=== PATIENT | female | born 1975 | race Caucasian/White ===

== ENCOUNTER → 2016-12-22 | Outpatient (CLI) | payer OTHER ==
[~2016-12-22] MED LIST: BCP TD; BENTYL 20MG20 MG/TAB PO; CALCIUM 600/VIT1 CA1 PO; COUMADIN; IBUPROFEN600 MG PO; LOVENOX100 MG/ML SC; MULTI VITAMINS1 TAB PO; OMEGA-3 FISH1000 MG PO; SYNTHROID 0.0.025 MG PO; ULTRAM ER100 MG PO; ZOFRAN ODT4 MG PO
== END ==
LOC: COL.RAD 13:30
DX: S43.432A Superior glenoid labrum lesion of left shoulder, initial encounter (principal); M19.012 Primary osteoarthritis, left shoulder
CPT/HCPCS: A9585; Q9967

== ENCOUNTER 2017-04-06 14:41 | Inpatient (IN) | payer BC ==
[~2017-04-06] VITALS: Ht 170.2 cm; Wt 97.6 kg
[~2017-04-06 14:41] MED LIST changes: -BENTYL 20MG20 MG/TAB PO; -CALCIUM 600/VIT1 CA1 PO; -MULTI VITAMINS1 TAB PO; -OMEGA-3 FISH1000 MG PO; -SYNTHROID 0.0.025 MG PO; -ZOFRAN ODT4 MG PO
[2017-04-06] MEDS ORDERED: SYNTHROID 0.0.025 MG PO (15:05)
[2017-04-06] MEDS ORDERED: BENTYL 20MG20 MG/TAB PO (15:06)
[2017-04-06] MEDS ORDERED: ZOFRAN ODT4 MG PO (15:06)
[2017-04-06] MEDS ORDERED: OMEGA-3 FISH1000 MG PO (15:07)
[2017-04-06] MEDS ORDERED: MULTI VITAMINS1 TAB PO (15:07)
[2017-04-06] MEDS ORDERED: CALCIUM 600/VIT1 CA1 PO (15:07)
[2017-04-06 16:03] LABS: ADJUSTED CALCIUM 8.9 mg/dL (8.4-10.2); ALBUMIN 4.7 gm/dL (3.5-5.0); BILIRUBIN,TOTAL 1.5 mg/dL (0.0-1.0); CALCIUM 9.5 mg/dL (8.4-10.2); CREATININE, serum 0.9 mg/dL (0.52-1.25); POTASSIUM 4.3 mmol/L (3.4-5.0)
[2017-04-06 16:29] LABS: INR 1.2 (0.8-3.0); PROTHROMBIN TIME 13.4 SECONDS (9.7-12.8)
[2017-04-06 16:31] LABS: PARTIAL THROMBOPLASTIN TIME 29.8 SECONDS (26.0-37.0)
[2017-04-06 16:32] LABS: C-REACTIVE PROTEIN 16.4 mg/dL (0.0-0.9)
[2017-04-06 17:26] LABS: BASO % 0.4 % (0.0-2.0); EOS # 0.4 (0.0-0.7); EOS % 3.6 % (0-4.0); GRAN # 7.3 (1.4-6.5); GRAN % 72.4 % (42.2-75.2); HEMATOCRIT 42.2 % (37.0-47.0); HEMOGLOBIN 13.8 g/dl (12.5-16.0); LYMPH # 1.4 (1.2-3.4); LYMPH % 13.8 % (20.0-51.0); MEAN CELL VOLUME 94 fl (80.0-100.0); MEAN CORPUSCULAR HEMOGLOBIN 31 pg (27.0-31.0); MEAN CORPUSCULAR HGB CONC 33 g/dl (33.0-37.0); MEAN PLATELET VOLUME 10.8 fl (7.4-10.4); MONO % 9.4 % (1.7-9.3); PLATELET COUNT 142 K/mm3 (130-400); RED BLOOD COUNT 4.51 M/mm3 (4.10-5.30); REDCELL DISTRIBUTION WIDTH-CV 11.9 % (11.5-14.5); WHITE BLOOD COUNT 10.1 K/mm3 (4.8-10.8)
[2017-04-06 18:11] VITALS: BP 115/60; PULSE 79; TEMP 98.2; TEMP 982
[2017-04-06 20:39] VITALS: BP 109/66; PULSE 90; TEMP 98.9
[2017-04-06 23:34] VITALS: BP 109/59; PULSE 82; TEMP 98.3
[2017-04-07] VITALS (7 sets, daily range): BP systolic 109–134; BP diastolic 52–66; PULSE 85–93; TEMP 98.1–100.2
[2017-04-08] VITALS (334 sets, daily range): BP systolic 104–196; BP diastolic 43–64; PULSE 79–99; TEMP 97.5–99.5; O2SAT 92–100
[2017-04-08 01:10] LABS: COAG INR 1.2 (0.9-1.2)
[2017-04-08 02:03] LABS: BASO # 0.1 (0.0-0.2); BASO % 0.4 % (0.0-2.0); EOS # 0.3 (0.0-0.7); EOS % 2.4 % (0-4.0); GRAN # 8.8 (1.4-6.5); GRAN % 74.2 % (42.2-75.2); LYMPH # 1.6 (1.2-3.4); LYMPH % 13.4 % (20.0-51.0); MEAN CELL VOLUME 94 fl (80.0-100.0); MEAN CORPUSCULAR HGB CONC 33 g/dl (33.0-37.0); MEAN PLATELET VOLUME 10.5 fl (7.4-10.4); MONO # 1.1 (0.1-0.6); PLATELET COUNT 109 K/mm3 (130-400); RED BLOOD COUNT 3.31 M/mm3 (4.10-5.30); WHITE BLOOD COUNT 11.9 K/mm3 (4.8-10.8)
[2017-04-08 02:07] LABS: HEMOGLOBIN 10.3 g/dl (12.5-16.0); MEAN CORPUSCULAR HEMOGLOBIN 31 pg (27.0-31.0)
[2017-04-08 02:08] LABS: INR 1.5 (0.8-3.0); PROTHROMBIN TIME 16.9 SECONDS (9.7-12.8)
[2017-04-08 02:11] LABS: PARTIAL THROMBOPLASTIN TIME 47.3 SECONDS (26.0-37.0)
[2017-04-08 02:19] LABS: URINE APPEARANCE Hazy; URINE BACTERIA Rare /hpf; URINE RBC 0-2 /hpf
[2017-04-08 02:27] LABS: URINE COLOR Red
[2017-04-08 03:26] LABS: CREATININE, serum 0.99 mg/dL (0.52-1.25)
[2017-04-08 06:44] LABS: BASO % 0.4 % (0.0-2.0); EOS # 0.3 (0.0-0.7); GRAN # 6.7 (1.4-6.5); GRAN % 72.4 % (42.2-75.2); LYMPH # 1.3 (1.2-3.4); LYMPH % 13.5 % (20.0-51.0); MEAN CELL VOLUME 94 fl (80.0-100.0); MEAN CORPUSCULAR HGB CONC 33 g/dl (33.0-37.0); MEAN PLATELET VOLUME 10.6 fl (7.4-10.4); MONO # 0.9 (0.1-0.6); MONO % 10.2 % (1.7-9.3); PLATELET COUNT 106 K/mm3 (130-400); RED BLOOD COUNT 3.43 M/mm3 (4.10-5.30); WHITE BLOOD COUNT 9.2 K/mm3 (4.8-10.8)
[2017-04-08 06:45] LABS: HEMATOCRIT 32.2 % (37.0-47.0); HEMOGLOBIN 10.7 g/dl (12.5-16.0); MEAN CORPUSCULAR HEMOGLOBIN 31 pg (27.0-31.0)
[2017-04-08 06:54] LABS: ANION GAP 6 mmol/L (7-16); CALCIUM 8.3 mg/dL (8.4-10.2); CARBON DIOXIDE 24 mmol/L (22-30); CHLORIDE 111 mmol/L (98-107); CREATININE, serum 0.93 mg/dL (0.52-1.25); GLUCOSE 89 mg/dL (74-106); SODIUM 140 mmol/L (137-145)
[2017-04-08 10:25] LABS: FACTOR V LEIDEN MUTATION B Negative (Negative); PARTIAL THROMBLASTIN TIME 28.6 seconds (25.0-35.0); PT G20210A MUTATION B Negative (Negative)
[2017-04-08 13:12] LABS: HEMATOCRIT 35.8 % (37.0-47.0); HEMOGLOBIN 11.9 g/dl (12.5-16.0)
[2017-04-08 13:13] LABS: CALCIUM 8.7 mg/dL (8.4-10.2); CREATININE, serum 0.82 mg/dL (0.52-1.25); POTASSIUM 3.2 mmol/L (3.4-5.0)
[2017-04-08 13:38] LABS: PROTEIN C ACTIVITY 101 % (70-150)
[2017-04-08 13:41] LABS: PROTEIN S ACTIVITY 138 % (50-149)
[2017-04-09 02:33] VITALS: BP 107/39; PULSE 84; TEMP 98.2
[2017-04-09 05:42] VITALS: BP 114/50; PULSE 93; TEMP 99.7
[2017-04-09 10:03] VITALS: BP 112/54; PULSE 87; TEMP 98.5
[2017-04-09] MEDS ORDERED: XARELTO STARTER20 MG PO (12:28)
[2017-04-09 13:34] VITALS: BP 104/51; PULSE 79; TEMP 98.3
[2017-04-09 19:59] VITALS: BP 114/67; PULSE 114; TEMP 98.6
[2017-04-11 11:39] LABS: LUPUS ANTICOAGULANT INR 1.1 (()); LUPUS ANTICOAGULANT PT 12.5 sec (()); LUPUS ANTICOAGULANT PTT 32 sec (26 - 36)
[2017-04-11 15:05] LABS: .ANTICARDIOLIPIN IGG <9.4 GPL (()); .ANTICARDIOLIPIN IGM 51.3 MPL (())
== END 2017-04-09 18:00 | disposition home or self-care (01) | DRG 271 ==
LOC: COL.ER 14:41 → MEDICAL 16:14 → ICU 16:14 → MEDICAL 19:20 → ICU 04-08 05:06 → SURG 04-08 14:20 → ICU 04-08 14:20 → SURG 04-08 14:20
PROVIDERS: Internal Medicine; Nurse Practitioner; Nurse Practitioner Family; Physician Assistant
PROC: 06CD3ZZ Extirpation of Matter from Left Common Iliac Vein, Percutaneous Approach (ICD-10-PCS; principal; 2017-04-07)
PROC: 06CM3ZZ Extirpation of Matter from Right Femoral Vein, Percutaneous Approach (ICD-10-PCS; 2017-04-07)
PROC: 3E03317 Introduction of Other Thrombolytic into Peripheral Vein, Percutaneous Approach (ICD-10-PCS; 2017-04-07)
DX: I82.423 Acute embolism and thrombosis of iliac vein, bilateral (principal); D68.32 Hemorrhagic disorder due to extrinsic circulating anticoagulants; D62 Acute posthemorrhagic anemia; I82.411 Acute embolism and thrombosis of right femoral vein; I82.4Z1 Acute embolism and thrombosis of unspecified deep veins of right distal lower extremity; Z86.711 Personal history of pulmonary embolism; Z86.718 Personal history of other venous thrombosis and embolism; R58 Hemorrhage, not elsewhere classified; T45.515A Adverse effect of anticoagulants, initial encounter; R31.0 Gross hematuria
CPT/HCPCS: 99223-AI; 99232-AI; 99233-AI; 99239; C1725; C1757; C1769; C1887; C1894; J1644; J1650; J1885; J2250; J2405; J3010; J7030; J7120; Q9967

== ENCOUNTER → 2017-09-16 | Outpatient (CLI) | payer BC ==
[~2017-09-16] MED LIST changes: +BENTYL 20MG20 MG/TAB PO; +CALCIUM 600/VIT1 CA1 PO; +MULTI VITAMINS1 TAB PO; +OMEGA-3 FISH1000 MG PO; +SYNTHROID 0.0.025 MG PO; +XARELTO STARTER20 MG PO; +ZOFRAN ODT4 MG PO
== END ==
LOC: COL.VAS 11:07
DX: I82.511 Chronic embolism and thrombosis of right femoral vein (principal); I82.531 Chronic embolism and thrombosis of right popliteal vein; I26.99 Other pulmonary embolism without acute cor pulmonale; Z79.01 Long term (current) use of anticoagulants

== ENCOUNTER 2018-06-01 13:32 | Outpatient (RCR) | payer OTHER | END 2018-07-10 | disposition home or self-care (01) | LOC: WSOH | DX: M25.511 Pain in right shoulder (principal); W18.49XA Other slipping, tripping and stumbling without falling, initial encounter; X50.0XXA Overexertion from strenuous movement or load, initial encounter; Y93.01 Activity, walking, marching and hiking; Y92.214 College as the place of occurrence of the external cause; Y99.0 Civilian activity done for income or pay; Z79.899 Other long term (current) drug therapy | CPT/HCPCS: G0283-GP ==

== ENCOUNTER → 2018-11-30 | Outpatient (CLI) | payer BC | LOC: MC.RAD 15:36 | DX: Z12.31 Encounter for screening mammogram for malignant neoplasm of breast (principal) ==

== ENCOUNTER → 2019-08-16 | Outpatient (CLI) | payer BC | LOC: COL.RAD 08:32 | DX: K80.20 Calculus of gallbladder without cholecystitis without obstruction (principal); K76.0 Fatty (change of) liver, not elsewhere classified ==

== ENCOUNTER → 2019-12-04 | Outpatient (CLI) | payer BC | LOC: MC.RAD 15:23 | DX: Z12.31 Encounter for screening mammogram for malignant neoplasm of breast (principal) ==

== ENCOUNTER 2023-03-11 09:00 | Outpatient (RCR) | payer OTHER, BC | END 2023-03-17 | disposition home or self-care (01) | LOC: WSC | DX: M54.31 Sciatica, right side (principal) ==